=== PATIENT | female | born 1995 | race Hispanic/Latino ===

== ENCOUNTER 2019-04-08 17:04 | Emergency (ER) | payer MEDICAID ==
[2019-04-08] MEDS ORDERED: ONDANSETRON ODT 4 MG TAB ONE (18:36)
[2019-04-08 18:53] LABS: RAPID GROUP A STREP NEGATIVE (NEGATIVE)
== END 2019-04-08 19:29 | disposition home or self-care (01) ==
LOC: EDH 17:04
DX: O98.512 Other viral diseases complicating pregnancy, second trimester (principal); B34.9 Viral infection, unspecified; Z3A.25 25 weeks gestation of pregnancy
CPT/HCPCS: 87804; 87880

== ENCOUNTER 2019-10-17 18:03 | Emergency (ER) | payer MEDICAID ==
[2019-10-17] MEDS ORDERED: ACETAMINOPHEN EXTRA STRENGTH 500 MG TABLET ONE (19:31)
[2019-10-17 19:41] LABS: BASOPHILS % (AUTO) 0.3 % (0.0-5.0); EOSINOPHILS % (AUTO) 0.8 % (0.0-8.0); HEMATOCRIT 39.8 % (36-48); LYMPHOCYTES % (AUTO) 11.2 % (21.0-51.0); MEAN CORPUSCULAR HGB CONC 32.7 g/dL (32.0-36.0); MEAN CORPUSCULAR VOLUME 85.8 fL (79-99); MONOCYTES % (AUTO) 4.8 % (3.0-13.0); NEUTROPHILS % (AUTO) 82.5 % (40.0-77.0); PLATELET COUNT (AUTO) 285 K/uL (130-400); RED BLOOD CELL COUNT(AUTO) 4.64 MIL/uL (4.00-5.50); WHITE BLOOD COUNT (AUTO) 7.7 K/uL (4.8-10.8)
[2019-10-17 20:06] LABS: CREATININE 0.7 mg/dL (0.5-1.5); POTASSIUM 3.4 mmol/L (3.5-5.1)
[2019-10-17] MEDS ORDERED: KETOROLAC TROMETHAMINE 30MG/ML ONE (20:52)
== END 2019-10-17 21:39 | disposition home or self-care (01) ==
LOC: EDH 18:03
DX: O91.23 Nonpurulent mastitis associated with lactation (principal); Z98.890 Other specified postprocedural states
CPT/HCPCS: 36415; 76641; 80048; 81025; 85025; 99284; J1885